=== PATIENT | female | born 2000 | race Caucasian/White ===

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

== ENCOUNTER 2021-05-29 15:48 | Emergency (ER) | payer OTHER, SELFPAY ==
[~2021-05-29] VITALS: Ht 160 cm; Wt 113.4 kg
[2021-05-29 15:53] VITALS: BP 137/75
--- NOTE | 2021-05-29 16:04 | NUR ---
XRAY AT PATIENT BEDSIDE
--- NOTE | 2021-05-29 16:04 | NUR ---
21Y FEMALE BIB SELF WITH C/O L WRIST PAIN X3 MONTHS. PT DENIES ANY TRAUMA TO HER WRIST. PT STATED SHE SAW PHYSICIAN FOR WRIST BEFORE AND WAS GIVEN IBUPROFEN, BUT IT PROVIDES LITTLE TO NO RELIEF PMH: DENIES NKA
--- NOTE | 2021-05-29 16:52 | NUR ---
DR. BROOKE AT PATIENT BEDSIDE FURTHER EVALUATING PT
[2021-05-29] MEDS ORDERED: ACETAMINOPHEN EXTRA STRENGTH 500 MG TAB PO ONE (17:00)
[2021-05-29] MEDS ORDERED: IBUPROFEN 800 MG TAB PO ONE (17:00)
[2021-05-29] MEDS ORDERED: LIDO15CR2 TP (17:02)
[2021-05-29] MEDS ORDERED: IBUP-2218 PO (17:02)
--- NOTE | 2021-05-29 17:02 | NUR ---
pt placed in right velcro wrist splint. [facility] before and after. [facility] notified. Addendum: 05/29/21 at 1707 by [facility] pt placed in left velcro wrist splint. [facility] wnl before and after. [facility] notified.
[2021-05-29] MEDS ORDERED: ACET-10509 PO (17:03)
[2021-05-29 17:16] VITALS: BP 137/75
--- NOTE | 2021-05-29 17:16 | NUR ---
Patient discharged with v/s stable. Written and verbal after care instructions given and explained. Patient alert, oriented and verbalized understanding of instructions. Ambulatory with steady gait. All questions addressed prior to discharge. ID band removed. Patient advised to follow up with PMD. Rx of ACETAMINOPHEN, IBUPROFEN & LIDOCAINE given. Patient educated on indication of medication including possible reaction and side effects. Opportunity to ask questions provided and answered.
== END 2021-05-29 17:16 | disposition home or self-care (01) ==
LOC: MED 15:48
DX: S66.912A Strain of unspecified muscle, fascia and tendon at wrist and hand level, left hand, initial encounter (principal); Z79.899 Other long term (current) drug therapy; X58.XXXA Exposure to other specified factors, initial encounter; Y93.89 Activity, other specified; Y92.89 Other specified places as the place of occurrence of the external cause; Y99.0 Civilian activity done for income or pay
CPT/HCPCS: 73110; 99283

== ENCOUNTER 2021-12-30 14:33 | Emergency (ER) | payer OTHER ==
[~2021-12-30] VITALS: Ht 157.5 cm; Wt 86.2 kg
[~2021-12-30 14:33] MED LIST: ACET-10509 PO; IBUP-2218 PO; LIDO15CR2 TP
[2021-12-30 14:34] VITALS: BP 122/86
[2021-12-30] MEDS ORDERED: KETOROLAC 60 MG/2 ML VIAL IM ONE (14:40)
--- NOTE | 2021-12-30 14:40 | NUR ---
PT TAKEN TO THE LOBBY
--- NOTE | 2021-12-30 14:45 | NUR ---
PT TAKEN TO XRAY VIA WC
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
[2021-12-30] MEDS ORDERED: NAPR-1717 PO (15:56)
[2021-12-30 16:15] VITALS: BP 122/86
--- NOTE | 2021-12-30 16:15 | NUR ---
Patient discharged with v/s stable. Written and verbal after care instructions ABOUT CERVICAL SPRAIN given and explained. Patient alert, oriented and verbalized understanding of instructions. Ambulatory with steady gait. All questions addressed prior to discharge. ID band removed. Patient advised to follow up with PMD. Rx of NAPROSYN given. Patient educated on indication of medication including possible reaction and side effects. Opportunity to ask questions provided and answered.
== END 2021-12-30 16:15 | disposition home or self-care (01) ==
LOC: MED 14:33
DX: S16.1XXA Strain of muscle, fascia and tendon at neck level, initial encounter (principal); V49.88XA Car occupant (driver) (passenger) injured in other specified transport accidents, initial encounter; Y93.89 Activity, other specified; Y92.89 Other specified places as the place of occurrence of the external cause; Y99.8 Other external cause status
CPT/HCPCS: 72050; 96372; 99283; J1885

== ENCOUNTER 2022-04-07 16:02 | Emergency (ER) | payer OTHER ==
[~2022-04-07] VITALS: Ht 165.1 cm; Wt 88.5 kg
[~2022-04-07 16:02] MED LIST changes: +NAPR-1717 PO
[2022-04-07 16:17] VITALS: BP 124/70
--- NOTE | 2022-04-07 16:18 | NUR ---
PT SWABBED AND SENT TO LAB
[2022-04-07] MEDS ORDERED: PROM118S5 PO (16:54)
[2022-04-07] MEDS ORDERED: IBUP-2213 PO (16:54)
[2022-04-07] MEDS ORDERED: LIDO100S PO (16:54)
--- NOTE | 2022-04-07 17:07 | NUR ---
Patient discharged with v/s stable. Written and verbal after care instructions given and explained. Patient alert, oriented and verbalized understanding of instructions. Ambulatory with steady gait. All questions addressed prior to discharge. ID band removed. Patient advised to follow up with PMD. Rx of LIDOCAINE, MOTRIN given. Patient educated on indication of medication including possible reaction and side effects. Opportunity to ask questions provided and answered.
== END 2022-04-07 17:03 | disposition home or self-care (01) ==
LOC: MED 16:02
DX: J06.9 Acute upper respiratory infection, unspecified (principal); Z20.822 Contact with and (suspected) exposure to COVID-19; F12.90 Cannabis use, unspecified, uncomplicated; Z79.899 Other long term (current) drug therapy
CPT/HCPCS: 99283

== ENCOUNTER 2022-04-27 13:50 | Emergency (ER) | payer OTHER ==
[~2022-04-27] VITALS: Ht 157.5 cm; Wt 117.0 kg
[~2022-04-27 13:50] MED LIST changes: +IBUP-2213 PO; +LIDO100S PO; +PROM118S5 PO
[2022-04-27 13:58] VITALS: BP 125/70
[2022-04-27] MEDS ORDERED: IBUPROFEN 600 MG TAB PO ONE (15:15)
--- NOTE | 2022-04-27 15:15 | NUR ---
VELCRO VOLAR APPLIED TO L WRIST. + CMS
--- NOTE | 2022-04-27 15:25 | NUR ---
22 Y/O FEMALE BIB SELF C/O LEFT WRIST PAIN X1 DAY, PER PT SHE WAS LIFTING WEIGHTS WHEN SHE FELT PAIN. 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 PT DENIES TWISTING OR HAVING WEIGHTS FALL ON WRIST NKA PMH: NO BONES IN THUMB
[2022-04-27] MEDS ORDERED: IBUP-2213 PO (15:36)
--- NOTE | 2022-04-27 15:43 | NUR ---
Patient discharged with v/s stable. Written and verbal after care instructions ABOUT WRIST SPRAIN given and explained. Patient alert, oriented and verbalized understanding of instructions. Ambulatory with steady gait. All questions addressed prior to discharge. ID band removed. Patient advised to follow up with PMD. Rx of IBUPROFEN given. Patient educated on indication of medication including possible reaction and side effects. Opportunity to ask questions provided and answered.
== END 2022-04-27 15:43 | disposition home or self-care (01) ==
LOC: MED 13:50
DX: S66.912A Strain of unspecified muscle, fascia and tendon at wrist and hand level, left hand, initial encounter (principal); R03.0 Elevated blood-pressure reading, without diagnosis of hypertension; X58.XXXA Exposure to other specified factors, initial encounter; Y93.89 Activity, other specified; Y92.89 Other specified places as the place of occurrence of the external cause; Y99.8 Other external cause status
CPT/HCPCS: 73110; 81025; 99283

== ENCOUNTER 2022-05-05 13:02 | Emergency (ER) | payer OTHER ==
[~2022-05-05] VITALS: Ht 160 cm; Wt 116.6 kg
[2022-05-05 13:15] VITALS: BP 125/77
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
[2022-05-05] MEDS ORDERED: IBUP-2213 PO (13:39)
--- NOTE | 2022-05-05 13:39 | NUR ---
PT'S LEFT WRIST WRAPPED WITH 3" SHELBI WRAP. [facility] WNL BEFORE AND AFTER.
--- NOTE | 2022-05-05 14:01 | NUR ---
The patient's care was reviewed and supervised by Dell Patel RN.
--- NOTE | 2022-05-05 14:01 | NUR ---
Patient discharged with v/s stable. Written and verbal after care instructions given. Patient verbalized understanding. Ambulatory with steady gait. All questions addressed prior to discharge. Advised to follow up with PMD.
== END 2022-05-05 14:01 | disposition home or self-care (01) ==
LOC: MED 13:02
DX: S66.912A Strain of unspecified muscle, fascia and tendon at wrist and hand level, left hand, initial encounter (principal); R03.0 Elevated blood-pressure reading, without diagnosis of hypertension; Z79.1 Long term (current) use of non-steroidal anti-inflammatories (NSAID); Z79.899 Other long term (current) drug therapy; X50.0XXA Overexertion from strenuous movement or load, initial encounter; Y92.89 Other specified places as the place of occurrence of the external cause; Y93.89 Activity, other specified; Y99.8 Other external cause status
CPT/HCPCS: 99282